=== PATIENT | female | born 1950 | race Caucasian/White ===

== ENCOUNTER → 2016-09-14 | Outpatient (CLI) | payer MEDICARE, OTHER ==
--- NOTE | 2016-09-15 09:12 | MM ---
Reason for exam: additional evaluation requested from prior study. Last mammogram was performed 1 year and 1 month ago. History: Patient is postmenopausal and has history of breast cancer at age 63. Family history of breast cancer in paternal aunt. Benign excisional biopsy of the left breast, January 2015. Reconstruction of the right breast, 2014. Malignant US biopsy breast VAD RT of the right breast, September 07, 2013. Malignant US biopsy breast add'l VAD RT of the right breast, September 07, 2013. Mastectomy of the right breast, 2013. Taking antineoplastic beginning at age 63. Physical Findings: Nurse did not find any significant physical abnormalities on exam. MG 3D Diag Mammo W/Cad LT CC, MLO, and ML view(s) were taken of the left breast. Prior study comparison: August 16, 2015, left breast MG 3d diag mammo w/cad LT. December 31, 2014, left breast MG 3d diag mammo w/cad LT. The breast tissue is heterogeneously dense. This may lower the sensitivity of mammography. Stable benign calcifications. Previous mammotome biopsy in the left breast. No significant new findings when compared with previous films. These results were verbally communicated with the patient and result sheet given to the patient on 09/14/16. ASSESSMENT: Benign, BI-RAD 2 RECOMMENDATION: Routine screening mammogram of both breasts in 1 year.
== END | disposition home or self-care (01) ==
LOC: RADMAMWWP 12:51
PROVIDERS: ATTEND Internal Medicine Hematology & Oncology
DX: Z08 Encounter for follow-up examination after completed treatment for malignant neoplasm (principal); Z85.3 Personal history of malignant neoplasm of breast
CPT/HCPCS: G0206; G0279

== ENCOUNTER 2017-04-05 07:09 | Day surgery (SDC) | payer MEDICARE, OTHER ==
[2017-04-01 10:02] VITALS: BMI 31.1
[~2017-04-05 07:09] MED LIST: LACTATED RINGERS 1,000 ML IV SCH
[2017-04-05 07:30] LABS: Glucose,Whole Blood 111 mg/dL (75-99)
[2017-04-05 07:33] VITALS: TEMP 98.3
[2017-04-05] MEDS ORDERED: LIDOCAINE 1% INJ 10MG/ML (20 ML MDV) ONE (08:33)
[2017-04-05] MEDS ORDERED: PROPOFOL 10 MG/ML 20 ML VIAL IV ONE (08:33)
[2017-04-05 09:09] VITALS: RESP 18
--- NOTE | 2017-04-05 09:12 | P.PCN ---
Date of Procedure: 04/05/17 Procedure(s) Performed: Procedure: Colonoscopy and polypectomy. Preoperative diagnosis: Positive occult blood in the stools. Postoperative diagnosis: 3 small distal sigmoid polyp snared but no large polyps , cancer or other pathology or potential sources of blood in the stools. Preparation: HalfLytely prep. Sedation: Was provided by anesthesia. Brief clinical history: The patient is a 66-year-old female who is referred for this evaluation because of finding of blood in her stools. The patient has no abdominal complaints, bleeding or anemia. No family history of colon cancer. This would be her first colonoscopy. Procedure: With the patient on her left lateral decubitus position and after informed consent and adequate sedation, the perianal area was inspected and it did not show any fissures or fistulas. There were no masses felt on digital rectal examination. The Olympus CFQ 160L video colonoscope was then inserted in the rectum in the usual fashion and advanced to the cecum. The mucosa appeared healthy. No large polyps or cancer was seen or any potential sources of bleeding. No obvious diverticular disease. There were 3 small polyps in the distal sigmoid probably representing hyperplastic polyps which I snared and retrieved by suction. I retroflexed the endoscope in the rectum before the endoscope was withdrawn. The patient tolerated the procedure well. Plan: The patient was reassured. In the absence of upper GI complaints or anemia I did not recommend upper GI workup because of her Hemoccult-positive stools and that can be kept as a contingency based on her course. With the finding of polyps and recommended repeat exam in 5 years. She will follow-up with you as planned.
[2017-04-05 09:33] VITALS: BP 192/107; PULSE 60
== END 2017-04-05 09:53 | disposition home or self-care (01) ==
LOC: ORWHC2ENDO 07:09
DX: K63.5 Polyp of colon (principal); Z85.3 Personal history of malignant neoplasm of breast; E78.5 Hyperlipidemia, unspecified; E11.9 Type 2 diabetes mellitus without complications; Z79.84 Long term (current) use of oral hypoglycemic drugs; Z79.899 Other long term (current) drug therapy
CPT/HCPCS: 88305; 45385; J2001; J2704

== ENCOUNTER → 2017-09-15 | Outpatient (CLI) | payer MEDICARE, OTHER ==
--- NOTE | 2017-09-16 09:48 | MM ---
Reason for exam: additional evaluation requested from prior study. Last mammogram was performed 1 year ago. History: Patient is postmenopausal and has history of breast cancer at age 63. Family history of breast cancer in paternal aunt. Benign excisional biopsy of the left breast, January 2015. Saline implant in the right breast, 2014. Reconstruction of the right breast, 2014. Malignant US biopsy breast VAD RT of the right breast, September 07, 2013. Malignant US biopsy breast add'l VAD RT of the right breast, September 07, 2013. Mastectomy of the right breast, 2013. Taking antineoplastic for 3 years beginning at age 63. Physical Findings: Nurse did not find any significant physical abnormalities on exam. MG 3D Diag Mammo W/Cad LT CC, MLO, and ML view(s) were taken of the left breast. Prior study comparison: September 14, 2016, left breast MG 3d diag mammo w/cad LT. August 16, 2015, left breast MG 3d diag mammo w/cad LT. There are scattered fibroglandular densities. Previous mammotome biopsy in the left breast. No significant new findings when compared with previous films. These results were verbally communicated with the patient and result sheet given to the patient on 09/15/17. ASSESSMENT: Negative, BI-RAD 1 RECOMMENDATION: Follow-up diagnostic mammogram of the left breast in 1 year.
== END | disposition home or self-care (01) ==
LOC: RADMAMWWP 10:36
PROVIDERS: ATTEND Internal Medicine Hematology & Oncology
DX: Z08 Encounter for follow-up examination after completed treatment for malignant neoplasm (principal); Z85.3 Personal history of malignant neoplasm of breast
CPT/HCPCS: 77065; G0279; 77061

== ENCOUNTER → 2018-09-19 | Outpatient (CLI) | payer MEDICARE, OTHER ==
--- NOTE | 2018-09-23 10:18 | MM ---
Reason for exam: additional evaluation requested from prior study. Last mammogram was performed 1 year ago. History: Patient is postmenopausal and has history of breast cancer at age 63. Family history of breast cancer in paternal aunt. Benign excisional biopsy of the left breast, January 2015. Saline implant in the right breast, 2014. Reconstruction of the right breast, 2014. Malignant US biopsy breast VAD RT of the right breast, September 07, 2013. Malignant US biopsy breast add'l VAD RT of the right breast, September 07, 2013. Mastectomy of the right breast, 2013. Taking antineoplastic for 4 years beginning at age 63. Physical Findings: Nurse did not find any significant physical abnormalities on exam. MG 3D Diag Mammo W/Cad LT CC and MLO view(s) were taken of the left breast. Prior study comparison: September 15, 2017, left breast MG 3d diag mammo w/cad LT. September 14, 2016, left breast MG 3d diag mammo w/cad LT. The breast tissue is heterogeneously dense. This may lower the sensitivity of mammography. Stable benign calcifications. Previous mammotome biopsy in the left breast. There is no discrete abnormality. No significant new findings when compared with previous films. These results were verbally communicated with the patient and result sheet given to the patient on 09/19/18. ASSESSMENT: Benign, BI-RAD 2 RECOMMENDATION: Follow-up diagnostic mammogram of the left breast in 1 year.
== END | disposition home or self-care (01) ==
LOC: RADMAMWWP 12:45
PROVIDERS: ATTEND Internal Medicine Hematology & Oncology
DX: Z08 Encounter for follow-up examination after completed treatment for malignant neoplasm (principal); Z85.3 Personal history of malignant neoplasm of breast; Z90.11 Acquired absence of right breast and nipple
CPT/HCPCS: 77065; G0279; 77061

== ENCOUNTER → 2019-01-03 | Outpatient (CLI) | payer MEDICARE, OTHER ==
--- NOTE | 2019-01-03 10:26 | USB ---
Reason for exam: clinical finding. History: Patient is postmenopausal and has history of breast cancer at age 63. Family history of breast cancer in paternal aunt. Benign excisional biopsy of the left breast, January 2015. Saline implant in the right breast, 2014. Reconstruction of the right breast, 2014. Malignant US biopsy breast VAD RT of the right breast, September 07, 2013. Malignant US biopsy breast add'l VAD RT of the right breast, September 07, 2013. Mastectomy of the right breast, 2013. Taking antineoplastic for 4 years beginning at age 63. Indicated problem(s): pain in the right breast. Physical Findings: Nurse Summary: patient states pain right breast comes and goes x 3 months in random areas of breast (nurse TM). US Breast RT Right complete breast ultrasound includes all four quadrants, the retroareolar region and axilla. Finding demonstrates no cystic or solid lesion seen. These results were verbally communicated with the patient and result sheet given to the patient on 01/03/19. ASSESSMENT: Negative, BI-RAD 1 RECOMMENDATION: Clinical management of the right breast. Manage patient on a clinical basis.
--- NOTE | 2019-01-03 13:02 | BD ---
EXAMINATION TYPE: Axial Bone Density DATE OF EXAM: 01/03/2019 COMPARISON: 01.19.2017 CLINICAL HISTORY: 68 YR OLD FEMALE.....ICD-10 CODE: M89.9 DISORDER OF BONE Z79.890, N95.1 Height: 62.1 Weight: 173 FRAX RISK QUESTIONS: Current Tobacco Use: QUIT 7 YRS AGO RISK FACTORS HISTORY OF: Family History of Osteoporosis: NONE KNOWN Postmenopausal woman: YES, ABOUT 55 YRS OLD Lost more than 2 inches in height since high school: YES Hyperparathyroidism: NO Adrenal Insufficiency: NO MEDICATIONS: Additional Medications: HX OF CHEMO AND RADIATION, FOR RT BR CANCER, METFORMIN, VIT, MULTIVITAMIN, ST ATIN FOR CHOLESTEROL, Additional History: RT BREAST CANCER, CHOLESTEROL,DIABETIC, HORMONE LESTER FOR BREAST CA EXAM MEASUREMENTS: Bone mineral densitometry was performed using the [employer] System. Bone mineral density as measured about the Lumbar spine is: ----- L1-L4(G/cm2): 1.118 T Score Values are as follows: ----- L1: 0.1 ----- L2: -1.3 ----- L3: -0.1 ----- L4: -0.9 ----- L1-L4: -0.5 Bone mineral density has: Increased 2.5% since study of: 01.19.2017 Bone mineral density about the R hip (g/cm2): 0.954 Bone mineral density about the L hip (g/cm2): 1.012 T Score values are as follows: -----R Neck: -1.2 -----L Neck: -0.8 -----R Total: -0.4 -----L Total: 0.0 Bone mineral density has: Increased 1.5% since study of: 01.19.2017 FRAX%s: THERE IS A 8.8% CHANCE FOR A MAJOR OSTEOPOROTIC FX AND A 1.8% FOR HIP.....PROBABILITY FOR F X IN 10 YRS TIME IMPRESSION: No evidence for osteoporosis or osteopenia. NOTE: T-SCORE=SD OF THE YOUNG ADULT MEAN.
== END | disposition home or self-care (01) ==
LOC: RADUSWWP 08:09
PROVIDERS: ATTEND Internal Medicine Hematology & Oncology
DX: N64.4 Mastodynia (principal); Z85.3 Personal history of malignant neoplasm of breast; M89.9 Disorder of bone, unspecified; N95.1 Menopausal and female climacteric states; Z79.890 Hormone replacement therapy
CPT/HCPCS: 77080

== ENCOUNTER → 2020-09-10 | Outpatient (CLI) | payer MEDICARE ==
--- NOTE | 2020-09-10 09:42 | MM ---
Reason for exam: additional evaluation requested from prior study. Last mammogram was performed 2 years ago. History: Patient is postmenopausal and has history of breast cancer at age 63. Family history of breast cancer in paternal aunt. Benign excisional biopsy of the left breast, January 2015. Saline implant in the right breast, 2014. Reconstruction of the right breast, 2014. Malignant US biopsy breast VAD RT of the right breast, September 07, 2013. Malignant US biopsy breast add'l VAD RT of the right breast, September 07, 2013. Mastectomy of the right breast, 2013. Taking antineoplastic for 4 years beginning at age 63. Physical Findings: Nurse did not find any significant physical abnormalities on exam. MG 3D Diag Mammo W/Cad LT CC and MLO view(s) were taken of the left breast. Prior study comparison: January 03, 2019, right breast US breast RT. September 19, 2018, left breast MG 3d diag mammo w/cad LT. September 15, 2017, left breast MG 3d diag mammo w/cad LT. There are scattered fibroglandular densities. Previous mammotome biopsy in the left breast. Stable dense island of tissue upper outer quadrant. No significant new findings when compared with previous films. These results were verbally communicated with the patient and result sheet given to the patient on 09/10/20. ASSESSMENT: Negative, BI-RAD 1 RECOMMENDATION: Routine screening mammogram of the left breast in 1 year.
== END | disposition home or self-care (01) ==
LOC: RADMAMWWP 08:32
PROVIDERS: ATTEND Internal Medicine Hematology & Oncology
DX: N64.89 Other specified disorders of breast (principal); Z78.0 Asymptomatic menopausal state; Z85.3 Personal history of malignant neoplasm of breast; Z80.3 Family history of malignant neoplasm of breast
CPT/HCPCS: 77065; G0279; 77061

== ENCOUNTER → 2022-01-12 | Outpatient (CLI) | payer MEDICARE ==
--- NOTE | 2022-01-12 14:44 | MM ---
Reason for Exam: Additional evaluation requested from prior study. Last mammogram was performed 1 year(s) and 4 month(s) ago. Patient History: Menarche at age 13. First Full-Term at age 18. Postmenopausal. Breast cancer, right, age 63. 2013, Mastectomy on the Right side. 01/2015, Benign Excisional Biopsy on the left side. 09/07/2013, Malignant Core Biopsy on the right side. 09/07/2013, Malignant Core Biopsy on the right side. 2014, Implant on the right side. 2014, Implant on the right side. Paternal aunt had breast cancer. Prior Study Comparison: 09/15/2017 Left Diagnostic Mammogram, [facility]. 09/19/2018 Left Diagnostic Mammogram, [facility]. 09/10/2020 Left Diagnostic Mammogram, [facility]. Tissue Density: Left: The breast tissue is heterogeneously dense. This may lower the sensitivity of mammography. Findings: Analyzed By CAD. No evidence for mass or distortion. Microclip marker noted. Stable benign calcifications. Overall Assessment: Benign, BI-RAD 2 Management: Screening Mammogram of both breasts in 1 year. A clinical breast exam by your physician is recommended on an annual basis and results should be correlated with mammographic findings. This exam should not preclude additional follow-up of suspicious palpable abnormalities. Results were given to the patient verbally at the time of exam. Electronically signed and approved by: Jonny Vernon M.D. Radiologis
--- NOTE | 2022-01-12 19:13 | BD ---
EXAMINATION TYPE: Axial Bone Density DATE OF EXAM: 01/12/2022 COMPARISON: 01/03/2019 CLINICAL HISTORY: 71 years old Female. ICD-10 CODE: C50.411 BREAST CA Height: 62.2 Weight: 174 FRAX RISK QUESTIONS: Family History (Parent hip fracture): NO History of Fracture in Adulthood: NO Secondary Osteoporosis: NO Rheumatoid Arthritis: NO RISK FACTORS HISTORY OF: Family History of Osteoporosis: NO Active: YES Diet low in dairy products/other sources of calcium: NO Postmenopausal woman: YES Lost more than 2 inches in height since high school: NO Frequent falls: NO Poor Health: NO Hyperparathyroidism: NO Adrenal Insufficiency: NO MEDICATIONS: Additional Medications: YES HORMONE LESTER , METFORMIN , CHOLESTEROL LETROZOLE Additional History: YES INVASIVE CA RT BREAST 2014 , RADIATION AND CHEMO EXAM MEASUREMENTS: Bone mineral densitometry was performed using the [employer] System. Bone mineral density as measured about the Lumbar spine is: ----- L1-L4(G/cm2): 1.044 T Score Values are as follows: ----- L1: -0.6 ----- L2: -1.5 ----- L3: -1.0 ----- L4: -1.5 ----- L1-L4: -1.1 Bone mineral density has: Decreased -6.6% since study of: 01/03/2019 Bone mineral density about the R hip (g/cm2): 0.940 Bone mineral density about the L hip (g/cm2): 0.991 T Score values are as follows: -----R Neck: -1.3 -----L Neck: -1.3 -----R Total: -0.5 -----L Total: -0.1 Bone mineral density has: Decreased -1.7% since study of: 01/03/2019 FRAX%s: The graph provided illustrates a 9.9% chance for a major osteoporotic fx and a 1.6% chance fo r the hips probability for fx in 10 years time. IMPRESSION: Osteopenia (T Score between -2.5 and -1). There is slightly increased risk of fracture and the patient may be considered for treatment. Re-Screen 2-5 years. NOTE: T-SCORE=SD OF THE YOUNG ADULT MEAN.
== END | disposition home or self-care (01) ==
LOC: RADMAMWWP 14:11
PROVIDERS: ATTEND Internal Medicine Hematology & Oncology
DX: C50.411 Malignant neoplasm of upper-outer quadrant of right female breast (principal); M85.89 Other specified disorders of bone density and structure, multiple sites; Z78.0 Asymptomatic menopausal state; Z80.3 Family history of malignant neoplasm of breast; Z90.11 Acquired absence of right breast and nipple
CPT/HCPCS: 77080; 77065; G0279; 77061

== ENCOUNTER → 2024-02-24 | Outpatient (CLI) | payer MEDICARE ==
--- NOTE | 2024-02-24 13:54 | MM ---
Reason for Exam: Screening (asymptomatic). Last mammogram was performed 2 year(s) and 1 month(s) ago. Patient History: Menarche at age 13. First Full-Term at age 18. Postmenopausal. Breast cancer, right, age 63. 2013, Mastectomy on the Right side. 01/2015, Benign Excisional Biopsy on the left side. 09/07/2013, Malignant Core Biopsy on the right side. 09/07/2013, Malignant Core Biopsy on the right side. 2014, Implant on the right side. 2014, Implant on the right side. Paternal aunt had breast cancer. Prior Study Comparison: 09/19/2018 Left Diagnostic Mammogram, [facility]. 09/10/2020 Left Diagnostic Mammogram, [facility]. 01/12/2022 Left MG 3D diag mammo w/cad LT, [facility]. Tissue Density: Left: The breasts are heterogeneously dense, which may obscure small masses. Findings: Analyzed By CAD. Mammotome biopsy clip in the left breast is redemonstrated. There is no suspicious new mass or worrisome cluster microcatheter lesion in the left breast . Some scattered and grouped benign-appearing round calcifications are redemonstrated. Group of small round calcifications just lateral to the left are unchanged from 2019 mammogram. Overall Assessment: Benign, BI-RAD 2 Management: Screening Mammogram of both breasts in 1 year. A clinical breast exam by your physician is recommended on an annual basis and results should be correlated with mammographic findings. [facility], , 02/24/2024 1:50 PM. Electronically signed and approved by: Ryland Almeida M.D.
--- NOTE | 2024-02-24 15:05 | BD ---
EXAMINATION TYPE: Axial Bone Density DATE OF EXAM: 02/24/2024 CLINICAL HISTORY: 73 years old Female. ICD-10 CODE: M81.0 [id number] , Additional History: Height: 5 ft 3 in Weight: 189 FRAX RISK QUESTIONS: Alcohol (3 or more units per day): no Family History (Parent hip fracture): no Glucocorticoids (More than 3mos): no (Ex: prednisone, prednisolone, methylprednisolone, dexamethasone, and hydrocortisone). History of Fracture in Adulthood: no Secondary Osteoporosis: no 1. Type 1 Diabetes: no 2. Hyperthyroidism: no 3. Menopause before 45: no 4. Malnutrition: no 5. Chronic liver disease: no Rheumatoid Arthritis: no Current Tobacco Use: no RISK FACTORS HISTORY OF: Surgery to Spine/Hip(right/left)/Wrist (right/left): no MEDICATIONS: Thyroid Medications: none Osteoporosis Medications: none EXAM MEASUREMENTS: Bone mineral densitometry was performed using the [employer] System. Bone mineral density as measured about the Lumbar spine is: ----- L1-L4(G/cm2): 1.056 T Score Values are as follows: ----- L1: -0.8 ----- L2: -1.5 ----- L3: -0.6 ----- L4: -1.3 ----- L1-L4: -1.0 Z Score Values are as follows: ----- L1: 0.2 ----- L2: -0.5 ----- L3: 0.4 ----- L4: -0.2 ----- L1-L4: 0.0 Bone mineral density has: increased 1.1 % since study of: 2021 Bone mineral density about the R hip (g/cm2): 0.883 Bone mineral density about the L hip (g/cm2): 0.863 T Score values are as follows: -----R Neck: -1.1 -----L Neck: -1.3 -----R Total: -0.7 -----L Total: -0.6 Z Score values are as follows: -----R Neck: 0.4 -----L Neck: 0.2 -----R Total: 0.6 -----L Total: 0.6 Bone mineral density has: decreased -4.3 % since study of: 2021 FRAX%s: The graph provided illustrates a 10.0 % chance for a major osteoporotic fx and a 1.7 % chance for the hips probability for fx in 10 years time. IMPRESSION: Osteopenia (T Score between -2.5 and -1) remains present. There is slightly increased risk of fracture and the patient may be considered for treatment. Re-Screen 2-5 years. NOTE: T-SCORE=SD OF THE YOUNG ADULT MEAN. [facility], , 02/24/2024 3:02 PM
== END | disposition home or self-care (01) ==
LOC: RADMAMWWP 13:25
PROVIDERS: ATTEND Internal Medicine Hematology & Oncology
DX: Z12.31 Encounter for screening mammogram for malignant neoplasm of breast (principal); R92.333 Mammographic heterogeneous density, bilateral breasts; Z85.3 Personal history of malignant neoplasm of breast; Z78.0 Asymptomatic menopausal state; Z80.3 Family history of malignant neoplasm of breast
CPT/HCPCS: 77067; 77080